=== PATIENT | male | born 1940 | race Caucasian/White ===

== ENCOUNTER 2018-08-18 10:08 | Emergency (ER) | payer OTHER ==
[~2018-08-18] VITALS: Ht 170.2 cm; Wt 71.8 kg
[2018-08-18 10:33] VITALS: BP 157/96
[2018-08-18] MEDS ORDERED: IBUP-1985 PO (11:35)
[2018-08-18] MEDS ORDERED: ketorolac tromethamine 15mg/ml inj. IM ONE (11:35)
== END 2018-08-18 12:14 | disposition home or self-care (01) ==
LOC: ER 10:09
DX: M25.561 Pain in right knee (principal); G89.29 Other chronic pain; Z98.890 Other specified postprocedural states; Z79.899 Other long term (current) drug therapy
CPT/HCPCS: 29505; 73564; 96372; 99283; J1885